=== PATIENT | female | born 1955 | race Caucasian/White ===

== ENCOUNTER 2023-06-10 15:13 | Emergency (ER) | payer BC, OTHER ==
[~2023-06-10] VITALS: Ht 152.4 cm; Wt 64.0 kg
[2023-06-10 15:21] VITALS: BP 129/53; PULSE 81; RESP 16; TEMP 97.9; O2SAT 100
[2023-06-10] MEDS ORDERED: NAPR-681 PO (19:36)
[2023-06-10] MEDS ORDERED: TRAM50TA3 MT (19:36)
[2023-06-10] MEDS ORDERED: TRAMADOL HCL/ACETAMINOPHEN 37.5/325MG TABLET PO NR (19:45)
== END 2023-06-10 20:56 | disposition home or self-care (01) ==
LOC: ER 15:13
DX: M71.21 Synovial cyst of popliteal space [Baker], right knee (principal); M25.561 Pain in right knee
CPT/HCPCS: 73562; 93971; 99284